=== PATIENT | female | born 1950 | race African-American/Black ===

== ENCOUNTER 2019-05-08 06:18 | Day surgery (SDC) | payer MEDICARE, MEDICAID ==
[~2019-05-08 06:18] MED LIST: AMLO5TAB88; ASPI-864; LISI40TA4; MECL-109; METF-414; OMEP20CA4; TRAM50TA
[2019-05-08] MEDS ORDERED: BRIM5DRO EACHEYE (08:36)
[2019-05-08] MEDS ORDERED: ALBU90AE INH (08:36)
[2019-05-08] MEDS ORDERED: GABA-290 MT (08:38)
[2019-05-08] MEDS ORDERED: FLUT16SP15 BOTHNSTRLS (08:38)
[2019-05-08] MEDS ORDERED: NITR0.4T SL (08:38)
[2019-05-08] MEDS ORDERED: FENTANYL CITRATE/PF 50MCG/ML 2ML VIAL ONE (08:44)
[2019-05-08] MEDS ORDERED: MIDAZOLAM HCL 2 MG/2 ML VIAL ONE (08:44)
[2019-05-08] MEDS ORDERED: LIDOCAINE HCL 1% 20ML VIAL (Pyxis) INJ ONE (08:44)
[2019-05-08] MEDS ORDERED: IODIXANOL 320MG/ML 100 ML BOTTLE IV ONE (08:44)
[2019-05-08] MEDS ORDERED: ACETAMINOPHEN 325MG TABLET PO PRN (10:15)
[2019-05-08] MEDS ORDERED: ATROPINE SULFATE 1MG/10ML SYR IV PRN (10:15)
[2019-05-08] MEDS ORDERED: ONDANSETRON HCL 4MG/2ML INJ IV PRN (10:15)
[2019-05-08] MEDS ORDERED: NICARDIPINE 100MCG/ML 10ML VIAL (CATH LAB) IV ONE (16:32)
[2019-05-08] MEDS ORDERED: NITROGLYCERIN 50MCG/ML 10ML VIAL (CATH LAB) IV ONE (16:32)
== END 2019-05-08 15:55 | disposition home or self-care (01) ==
LOC: CCL 06:18
PROVIDERS: ATTEND Specialist
DX: I25.119 Atherosclerotic heart disease of native coronary artery with unspecified angina pectoris (principal); I10 Essential (primary) hypertension; E78.5 Hyperlipidemia, unspecified; E11.42 Type 2 diabetes mellitus with diabetic polyneuropathy; E66.9 Obesity, unspecified; Z86.73 Personal history of transient ischemic attack (TIA), and cerebral infarction without residual deficits; Z79.899 Other long term (current) drug therapy
CPT/HCPCS: 82962; 93458; 99152; C1760; C1769; C1887; C1893; J1644; J2250; J3010; J3490; Q9967; G0500

== ENCOUNTER 2019-05-28 05:09 | Inpatient (IN) | payer MEDICARE, MEDICAID ==
[~2019-05-28] VITALS: Ht 160 cm; Wt 113.4 kg
[~2019-05-28 05:09] MED LIST changes: +ALBU90AE INH; -AMLO5TAB88; -ASPI-864; +BRIM5DRO EACHEYE; +FLUT16SP15 BOTHNSTRLS; +GABA-290 MT; -MECL-109; +NITR0.4T SL; -OMEP20CA4; -TRAM50TA
[2019-05-28] MEDS ORDERED: OXYCODONE HCL/ACETAMINOPHEN 5/325MG TABLET PO ONE (06:30)
[2019-05-28] MEDS ORDERED: KETOROLAC 60MG/2ML VIAL IM ONE (06:30)
[2019-05-28 09:42] LABS: BASOPHILS % 0.6 % (0.0-2.0); EOSINOPHILS % 0.6 % (0.0-5.0); HEMATOCRIT. 42.4 % (36.0-48.0); HEMOGLOBIN. 13.7 g/dL (12.0-16.0); LYMPHOCYTES % 26.2 % (20.0-50.0); MEAN CORPUSCULAR HEMOGLOBIN 28.3 pg (28.0-32.0); MEAN CORPUSCULAR VOLUME 87.4 fL (81.0-99.0); MEAN PLATELET VOLUME 9.7 fl (7.4-10.4); MONOCYTES % 6.1 % (2.0-8.0); NEUTROPHILS % 66.5 % (40.0-76.0); PLATELET 164 x1000/uL (130-400); RED BLOOD CELL COUNT 4.86 mill/uL (4.2-5.4); RED CELL DISTRIBUTION WIDTH 15.1 % (11.6-14.6)
[2019-05-28 09:49] LABS: CHLORIDE 107 mEq/L (98-107)
[2019-05-28 13:18] VITALS: BP 149/54
[2019-05-28 14:00] VITALS: BP 149/54
[2019-05-28] MEDS ORDERED: DEXTROSE 50% WATER 50ML SYRINGE IV PRN (14:00)
[2019-05-28] MEDS ORDERED: ACETAMINOPHEN 325MG TABLET PO PRN (14:00)
[2019-05-28] MEDS ORDERED: IPRATROPIUM/ALBUTEROL 0.5-3(2.5)MG/3ML NEB HHN PRN (14:00)
[2019-05-28] MEDS ORDERED: ONDANSETRON HCL 4MG/2ML INJ IV PRN (14:00)
[2019-05-28] MEDS ORDERED: CLONIDINE 0.1MG TABLET PO PRN (14:00)
[2019-05-28] MEDS ORDERED: DOCUSATE SODIUM 100MG CAPSULE PO PRN (14:00)
[2019-05-28] MEDS ORDERED: HYDROCODONE/ACETAMINOPHEN 5/325MG TABLET PO PRN (14:00)
[2019-05-28 16:00] VITALS: BP 132/79
[2019-05-28] MEDS: ENOXAPARIN 30MG/0.3ML SYR SUBCUT SCH (17:40)
[2019-05-28] MEDS: LISINOPRIL 40MG TABLET PO SCH (17:41)
[2019-05-28] MEDS: METFORMIN HCL 500MG TABLET PO SCH (17:41)
[2019-05-28] MEDS: AMLODIPINE 10MG TABLET PO SCH (17:41)
[2019-05-28] MEDS: GABAPENTIN 300MG CAPSULE PO SCH ×2 (17:50→21:07)
[2019-05-28] MEDS: BLOOD SUGAR DIAGNOSTIC STRIP TEST SCH ×2 (17:57→20:50)
[2019-05-28] MEDS: INSULIN LISPRO 100 UNITS/ML SUBCUT SCH ×2 (17:57→20:50)
[2019-05-28 20:00] VITALS: BP 137/69
[2019-05-28] MEDS: IPRATROPIUM/ALBUTEROL 0.5-3(2.5)MG/3ML NEB HHN SCH (20:42)
[2019-05-29] VITALS: BP 132/74
[2019-05-29] MEDS: IPRATROPIUM/ALBUTEROL 0.5-3(2.5)MG/3ML NEB HHN SCH ×4 (01:20→20:42)
[2019-05-29] MEDS: HYDROCODONE/ACETAMINOPHEN 10/325MG TABLET PO PRN ×2 (02:51→17:26)
[2019-05-29 04:00] VITALS: BP 110/56
[2019-05-29] MEDS: BLOOD SUGAR DIAGNOSTIC STRIP TEST SCH ×4 (06:20→20:31)
[2019-05-29] MEDS: GABAPENTIN 300MG CAPSULE PO SCH ×3 (06:21→20:31)
[2019-05-29] MEDS: ENOXAPARIN 30MG/0.3ML SYR SUBCUT SCH ×2 (06:22→17:26)
[2019-05-29] MEDS ORDERED: OMEPRAZOLE 20MG CAPSULE EXTENDED RELEASE PO SCH (07:40)
[2019-05-29] MEDS: INSULIN LISPRO 100 UNITS/ML SUBCUT SCH ×4 (08:10→20:37)
[2019-05-29 08:30] VITALS: BP 127/64
[2019-05-29] MEDS: METFORMIN HCL 500MG TABLET PO SCH ×2 (08:47→17:26)
[2019-05-29] MEDS: PAROXETINE HCL 10MG TABLET PO SCH (08:47)
[2019-05-29] MEDS: AMLODIPINE 10MG TABLET PO SCH (08:47)
[2019-05-29] MEDS: LISINOPRIL 40MG TABLET PO SCH (08:48)
[2019-05-29 12:15] VITALS: BP 129/68
[2019-05-29 16:07] VITALS: BP 155/64
[2019-05-29 20:00] VITALS: BP 124/50
[2019-05-30 00:05] VITALS: BP 133/65
[2019-05-30] MEDS: IPRATROPIUM/ALBUTEROL 0.5-3(2.5)MG/3ML NEB HHN SCH ×4 (01:23→16:05)
[2019-05-30 04:00] VITALS: BP 113/60
[2019-05-30] MEDS: GABAPENTIN 300MG CAPSULE PO SCH ×2 (05:50→14:50)
[2019-05-30] MEDS: ENOXAPARIN 30MG/0.3ML SYR SUBCUT SCH (05:50)
[2019-05-30] MEDS: BLOOD SUGAR DIAGNOSTIC STRIP TEST SCH ×2 (05:56→12:40)
[2019-05-30 09:34] VITALS: BP 121/70
[2019-05-30] MEDS: AMLODIPINE 10MG TABLET PO SCH (09:41)
[2019-05-30] MEDS: METFORMIN HCL 500MG TABLET PO SCH (09:41)
[2019-05-30] MEDS: PAROXETINE HCL 10MG TABLET PO SCH (09:41)
[2019-05-30] MEDS: LISINOPRIL 40MG TABLET PO SCH (09:41)
[2019-05-30 12:25] VITALS: BP 140/68
[2019-05-30 13:11] LABS: ANTI-NUCLEAR ANTIBODIES DIRECT Positive (Negative)
[2019-05-30] MEDS: PREDNISONE 20MG TABLET PO SCH ×2 (14:49→16:31)
[2019-05-30 14:52] VITALS: BP 140/68
[2019-05-30 15:47] VITALS: BP 138/68
[2019-05-31 15:11] LABS: ANTI-MYELOPEROXIDASE AB < 9.0 U/mL (0.0-9.0); ANTI-PROTEINASE 3 ABS < 3.5 U/mL (0.0-3.5)
[2019-06-02 15:11] LABS: ATYPICAL P-ANCA <1:20 titer (Neg:<1:20); CYTOPLASMIC C-ANCA <1:20 titer (Neg:<1:20); PERINUCLEAR P-ANCA <1:20 titer (Neg:<1:20)
== END 2019-05-30 17:48 | DRG 552 ==
LOC: ER 05:09 → 7WST 07:57 → ENRESERV 09:55
PROVIDERS: ADMIT Internal Medicine Critical Care Medicine; ATTEND Internal Medicine Critical Care Medicine
DX: M48.061 Spinal stenosis, lumbar region without neurogenic claudication (principal); S12.600A Unspecified displaced fracture of seventh cervical vertebra, initial encounter for closed fracture; I67.82 Cerebral ischemia; I69.354 Hemiplegia and hemiparesis following cerebral infarction affecting left non-dominant side; G89.4 Chronic pain syndrome; F43.10 Post-traumatic stress disorder, unspecified; E66.01 Morbid (severe) obesity due to excess calories; E11.40 Type 2 diabetes mellitus with diabetic neuropathy, unspecified; I10 Essential (primary) hypertension; B19.20 Unspecified viral hepatitis C without hepatic coma; K21.9 Gastro-esophageal reflux disease without esophagitis; K52.9 Noninfective gastroenteritis and colitis, unspecified; M19.90 Unspecified osteoarthritis, unspecified site; M48.02 Spinal stenosis, cervical region; M47.892 Other spondylosis, cervical region; R91.8 Other nonspecific abnormal finding of lung field; X58.XXXA Exposure to other specified factors, initial encounter; R29.6 Repeated falls; Z82.3 Family history of stroke; Z86.11 Personal history of tuberculosis; Z90.710 Acquired absence of both cervix and uterus; Z86.718 Personal history of other venous thrombosis and embolism; Z79.899 Other long term (current) drug therapy; Z90.49 Acquired absence of other specified parts of digestive tract; Y93.89 Activity, other specified; Y92.89 Other specified places as the place of occurrence of the external cause; Y99.8 Other external cause status
CPT/HCPCS: 36415; 71045; 72128; 72131; 82962; 83520; 84550; 86038; 86256; 86431; 93970; 94640; 97161; 97166; 99285; J1650; J1885; J7512; J7620

== ENCOUNTER 2019-05-30 17:35 | Inpatient (IN) | payer MEDICARE, MEDICAID ==
[~2019-05-30] VITALS: Ht 154.9 cm; Wt 99.4 kg
[2019-05-30 20:00] VITALS: BP 125/64
[2019-05-30] MEDS ORDERED: DOCUSATE SODIUM 100MG CAPSULE PO PRN (20:00)
[2019-05-30] MEDS ORDERED: DEXTROSE 50% WATER 50ML SYRINGE IV PRN (20:00)
[2019-05-30] MEDS ORDERED: CLONIDINE 0.1MG TABLET PO PRN (20:00)
[2019-05-30] MEDS ORDERED: HYDROCODONE/ACETAMINOPHEN 5/325MG TABLET PO PRN (20:00)
[2019-05-30] MEDS ORDERED: HYDROCODONE/ACETAMINOPHEN 10/325MG TABLET PO PRN (20:00)
[2019-05-30] MEDS ORDERED: IPRATROPIUM/ALBUTEROL 0.5-3(2.5)MG/3ML NEB HHN PRN (20:00)
[2019-05-30] MEDS ORDERED: ONDANSETRON HCL 4MG TABLET PO PRN (20:00)
[2019-05-30] MEDS: INSULIN LISPRO 100 UNITS/ML SUBCUT SCH (21:00)
[2019-05-30] MEDS: BLOOD SUGAR DIAGNOSTIC STRIP TEST SCH (21:46)
[2019-05-30] MEDS: GABAPENTIN 300MG CAPSULE PO SCH (21:46)
[2019-05-30] MEDS: ENOXAPARIN 30MG/0.3ML SYR SUBCUT SCH (21:47)
[2019-05-31] MEDS: IPRATROPIUM/ALBUTEROL 0.5-3(2.5)MG/3ML NEB HHN SCH ×4 (00:23→20:10)
[2019-05-31] MEDS: BLOOD SUGAR DIAGNOSTIC STRIP TEST SCH ×4 (06:22→21:34)
[2019-05-31] MEDS: GABAPENTIN 300MG CAPSULE PO SCH ×3 (06:22→21:12)
[2019-05-31] MEDS: INSULIN LISPRO 100 UNITS/ML SUBCUT SCH ×4 (06:47→21:30)
[2019-05-31] MEDS ORDERED: OMEPRAZOLE 20MG CAPSULE EXTENDED RELEASE PO SCH (07:00)
[2019-05-31 07:58] LABS: BASOPHILS % 0.2 % (0.0-2.0); HEMATOCRIT. 39.4 % (36.0-48.0); HEMOGLOBIN. 12.8 g/dL (12.0-16.0); LYMPHOCYTES % 8.9 % (20.0-50.0); MEAN CORPUSCULAR VOLUME 86.5 fL (81.0-99.0); MEAN PLATELET VOLUME 11.1 fl (7.4-10.4); MONOCYTES % 1.5 % (2.0-8.0); NEUTROPHILS % 89.4 % (40.0-76.0); PLATELET 183 x1000/uL (130-400); RED BLOOD CELL COUNT 4.55 mill/uL (4.2-5.4)
[2019-05-31 08:00] VITALS: BP 140/86
[2019-05-31 08:29] LABS: CHLORIDE 109 mEq/L (98-107)
[2019-05-31] MEDS ORDERED: PANTOPRAZOLE 40MG DR TABLET PO SCH (10:00)
[2019-05-31] MEDS: PAROXETINE HCL 10MG TABLET PO SCH (10:38)
[2019-05-31] MEDS: PREDNISONE 20MG TABLET PO SCH ×3 (10:38→17:22)
[2019-05-31] MEDS: METFORMIN HCL 500MG TABLET PO SCH ×2 (10:38→17:22)
[2019-05-31] MEDS: LISINOPRIL 40MG TABLET PO SCH (10:39)
[2019-05-31] MEDS: AMLODIPINE 10MG TABLET PO SCH (10:39)
[2019-05-31] MEDS: ENOXAPARIN 30MG/0.3ML SYR SUBCUT SCH ×2 (10:39→21:13)
[2019-05-31 20:00] VITALS: BP 122/55
[2019-06-01] MEDS: IPRATROPIUM/ALBUTEROL 0.5-3(2.5)MG/3ML NEB HHN SCH ×4 (02:22→21:16)
[2019-06-01] MEDS: GABAPENTIN 300MG CAPSULE PO SCH ×3 (06:49→21:19)
[2019-06-01] MEDS: PANTOPRAZOLE 40MG DR TABLET PO SCH (06:49)
[2019-06-01 08:00] VITALS: BP 119/64
[2019-06-01] MEDS: AMLODIPINE 10MG TABLET PO SCH (08:24)
[2019-06-01] MEDS: METFORMIN HCL 500MG TABLET PO SCH ×2 (08:25→17:30)
[2019-06-01] MEDS: PREDNISONE 20MG TABLET PO SCH ×3 (08:25→17:30)
[2019-06-01] MEDS: PAROXETINE HCL 10MG TABLET PO SCH (08:25)
[2019-06-01] MEDS: ENOXAPARIN 30MG/0.3ML SYR SUBCUT SCH ×2 (08:26→21:19)
[2019-06-01] MEDS: INSULIN LISPRO 100 UNITS/ML SUBCUT SCH ×4 (08:33→21:00)
[2019-06-01] MEDS: LISINOPRIL 40MG TABLET PO SCH (09:00)
[2019-06-01] MEDS: BLOOD SUGAR DIAGNOSTIC STRIP TEST SCH ×3 (11:51→21:18)
[2019-06-01] MEDS: ACETAMINOPHEN 325MG TABLET PO PRN ×2 (11:52→21:20)
[2019-06-01 14:48] LABS: CLARITY URINE CLOUDY (CLEAR); COLOR URINE YELLOW (YELLOW); KETONES URINE NEGATIVE (NEGATIVE); LEUKOCYTE ESTERASE URINE 2+ (NEGATIVE); NITRITE URINE NEGATIVE (NEGATIVE); OCCULT BLOOD URINE NEGATIVE (NEGATIVE); PH URINE >=9.0 (4.5-8.0); PROTEIN URINE 2+ (NEGATIVE); SPECIFIC GRAVITY URINE 1.021 (1.005-1.030); UROBILINOGEN URINE 0.2 E.U./dL (0.2-1.0)
[2019-06-01 20:00] VITALS: BP 135/63
[2019-06-02] MEDS: IPRATROPIUM/ALBUTEROL 0.5-3(2.5)MG/3ML NEB HHN SCH ×4 (03:16→20:09)
[2019-06-02] MEDS: GABAPENTIN 300MG CAPSULE PO SCH ×3 (06:11→21:15)
[2019-06-02] MEDS: PANTOPRAZOLE 40MG DR TABLET PO SCH (06:11)
[2019-06-02] MEDS: BLOOD SUGAR DIAGNOSTIC STRIP TEST SCH ×4 (06:11→21:15)
[2019-06-02] MEDS: INSULIN LISPRO 100 UNITS/ML SUBCUT SCH ×4 (06:12→21:00)
[2019-06-02 07:18] LABS: HEMATOCRIT. 39.5 % (36.0-48.0); HEMOGLOBIN. 12.2 g/dL (12.0-16.0); MEAN CORPUSCULAR HEMOGLOBIN 27.1 pg (28.0-32.0); MEAN CORPUSCULAR VOLUME 87.7 fL (81.0-99.0); MEAN PLATELET VOLUME 10.1 fl (7.4-10.4); PLATELET 196 x1000/uL (130-400); RED BLOOD CELL COUNT 4.51 mill/uL (4.2-5.4); RED CELL DISTRIBUTION WIDTH 15.3 % (11.6-14.6)
[2019-06-02 07:39] LABS: CHLORIDE 107 mEq/L (98-107)
[2019-06-02 07:42] LABS: FOLIC ACID (FOLATE) SERUM 10.5 ng/mL (>5.38)
[2019-06-02 07:51] LABS: PHOSPHORUS 3.2 mg/dL (2.5-4.9)
[2019-06-02 07:52] LABS: TOTAL IRON BINDING CAPACITY 324 ug/dL (250-450)
[2019-06-02 08:00] VITALS: BP 148/77
[2019-06-02] MEDS: PREDNISONE 20MG TABLET PO SCH (09:11)
[2019-06-02] MEDS: METFORMIN HCL 500MG TABLET PO SCH ×2 (09:12→16:21)
[2019-06-02] MEDS: AMLODIPINE 10MG TABLET PO SCH (09:12)
[2019-06-02] MEDS: ENOXAPARIN 30MG/0.3ML SYR SUBCUT SCH ×2 (09:12→21:14)
[2019-06-02] MEDS: PAROXETINE HCL 10MG TABLET PO SCH (09:12)
[2019-06-02] MEDS: LISINOPRIL 40MG TABLET PO SCH (09:12)
[2019-06-02] MEDS: ACETAMINOPHEN 325MG TABLET PO PRN (10:14)
[2019-06-02] MEDS: LIDOCAINE 5% PATCH TOP SCH (12:01)
[2019-06-02 12:16] LABS: T4 FREE 0.85 ng/dL (0.76-1.46)
[2019-06-02] MEDS: LEVOFLOXACIN 500MG TABLET PO SCH (13:06)
[2019-06-02 13:50] LABS: PLATELET ESTIMATE NORMAL
[2019-06-02] MEDS: MESALAMINE 400 MG CAPSULE.DR PO SCH (16:21)
[2019-06-02 20:00] VITALS: BP 137/67
[2019-06-03] MEDS: IPRATROPIUM/ALBUTEROL 0.5-3(2.5)MG/3ML NEB HHN SCH ×4 (02:13→20:03)
[2019-06-03] MEDS: GABAPENTIN 300MG CAPSULE PO SCH ×3 (06:05→22:09)
[2019-06-03] MEDS: BLOOD SUGAR DIAGNOSTIC STRIP TEST SCH ×4 (06:06→21:00)
[2019-06-03] MEDS: PANTOPRAZOLE 40MG DR TABLET PO SCH (06:06)
[2019-06-03] MEDS: INSULIN LISPRO 100 UNITS/ML SUBCUT SCH ×4 (06:52→21:00)
[2019-06-03 07:11] LABS: BASOPHILS % 0.3 % (0.0-2.0); EOSINOPHILS % 0.1 % (0.0-5.0); HEMATOCRIT. 38.5 % (36.0-48.0); HEMOGLOBIN. 12.4 g/dL (12.0-16.0); MEAN CORPUSCULAR HEMOGLOBIN 28.1 pg (28.0-32.0); MEAN CORPUSCULAR VOLUME 87.1 fL (81.0-99.0); MEAN PLATELET VOLUME 9.9 fl (7.4-10.4); MONOCYTES % 7.3 % (2.0-8.0); NEUTROPHILS % 76.3 % (40.0-76.0); PLATELET 179 x1000/uL (130-400); RED BLOOD CELL COUNT 4.42 mill/uL (4.2-5.4); RED CELL DISTRIBUTION WIDTH 15.3 % (11.6-14.6)
[2019-06-03 07:47] LABS: HEPATITIS B SURFACE ANTIGEN NEGATIVE
[2019-06-03 08:00] VITALS: BP 121/52
[2019-06-03 08:17] LABS: HEPATITIS A AB IGM NEGATIVE (NEGATIVE)
[2019-06-03] MEDS: LIDOCAINE 5% PATCH TOP SCH (09:06)
[2019-06-03] MEDS: ENOXAPARIN 30MG/0.3ML SYR SUBCUT SCH ×2 (09:06→22:10)
[2019-06-03] MEDS: MESALAMINE 400 MG CAPSULE.DR PO SCH ×2 (09:09→13:01)
[2019-06-03] MEDS: ACETAMINOPHEN 325MG TABLET PO PRN ×2 (09:09→13:01)
[2019-06-03] MEDS: METFORMIN HCL 500MG TABLET PO SCH ×2 (09:09→17:00)
[2019-06-03] MEDS: PAROXETINE HCL 10MG TABLET PO SCH (09:09)
[2019-06-03] MEDS: AMLODIPINE 10MG TABLET PO SCH (09:10)
[2019-06-03] MEDS: LISINOPRIL 40MG TABLET PO SCH (09:10)
[2019-06-03] MEDS: LEVOFLOXACIN 500MG TABLET PO SCH (13:01)
[2019-06-03] MEDS ORDERED: LOPERAMIDE HCL 2MG CAPSULE PO PRN (14:00)
[2019-06-03] MEDS: DOCUSATE SODIUM 100MG CAPSULE PO SCH (17:00)
[2019-06-03 20:00] VITALS: BP 124/61
[2019-06-03] MEDS: SULFAMETHOXAZOLE/TRIMETHOPRIM 800/160MG TABLET PO SCH (22:09)
[2019-06-04] MEDS: IPRATROPIUM/ALBUTEROL 0.5-3(2.5)MG/3ML NEB HHN SCH ×4 (01:59→20:59)
[2019-06-04] MEDS: BLOOD SUGAR DIAGNOSTIC STRIP TEST SCH ×4 (06:14→21:12)
[2019-06-04] MEDS: GABAPENTIN 300MG CAPSULE PO SCH ×3 (06:14→21:12)
[2019-06-04] MEDS: PANTOPRAZOLE 40MG DR TABLET PO SCH (06:14)
[2019-06-04] MEDS: INSULIN LISPRO 100 UNITS/ML SUBCUT SCH ×4 (06:15→21:00)
[2019-06-04 08:21] VITALS: BP 105/59
[2019-06-04] MEDS: AMLODIPINE 10MG TABLET PO SCH (09:00)
[2019-06-04] MEDS: LISINOPRIL 40MG TABLET PO SCH (09:00)
[2019-06-04] MEDS: DOCUSATE SODIUM 100MG CAPSULE PO SCH (10:36)
[2019-06-04] MEDS: PAROXETINE HCL 10MG TABLET PO SCH (10:36)
[2019-06-04] MEDS: ENOXAPARIN 30MG/0.3ML SYR SUBCUT SCH ×2 (10:37→21:12)
[2019-06-04] MEDS: METFORMIN HCL 500MG TABLET PO SCH ×2 (10:37→17:18)
[2019-06-04] MEDS: SULFAMETHOXAZOLE/TRIMETHOPRIM 800/160MG TABLET PO SCH ×2 (10:37→21:12)
[2019-06-04] MEDS: LIDOCAINE 5% PATCH TOP SCH (10:37)
[2019-06-04 20:00] VITALS: BP 139/63
[2019-06-05] MEDS: IPRATROPIUM/ALBUTEROL 0.5-3(2.5)MG/3ML NEB HHN SCH ×3 (02:07→21:05)
[2019-06-05] MEDS: PANTOPRAZOLE 40MG DR TABLET PO SCH (06:29)
[2019-06-05] MEDS: GABAPENTIN 300MG CAPSULE PO SCH ×3 (06:29→21:05)
[2019-06-05] MEDS: BLOOD SUGAR DIAGNOSTIC STRIP TEST SCH ×4 (06:29→20:18)
[2019-06-05 08:00] VITALS: BP 120/61
[2019-06-05] MEDS: PAROXETINE HCL 10MG TABLET PO SCH (09:00)
[2019-06-05] MEDS: INSULIN LISPRO 100 UNITS/ML SUBCUT SCH ×4 (09:00→20:17)
[2019-06-05] MEDS: ENOXAPARIN 30MG/0.3ML SYR SUBCUT SCH ×2 (09:06→20:17)
[2019-06-05] MEDS: METFORMIN HCL 500MG TABLET PO SCH ×2 (09:06→16:10)
[2019-06-05] MEDS: AMLODIPINE 10MG TABLET PO SCH (09:07)
[2019-06-05] MEDS: SULFAMETHOXAZOLE/TRIMETHOPRIM 800/160MG TABLET PO SCH ×2 (09:08→20:16)
[2019-06-05] MEDS: DOCUSATE SODIUM 100MG CAPSULE PO SCH (09:08)
[2019-06-05] MEDS: LISINOPRIL 40MG TABLET PO SCH (09:09)
[2019-06-05] MEDS: LIDOCAINE 5% PATCH TOP SCH (09:11)
[2019-06-05 10:06] LABS: SACCHAROMYCES CEREVISIAE IGG 98.4 Units (0.0-24.9); SACCHAROMYCES CEREVISIAE IGM <20.0 Units (0.0-24.9)
[2019-06-05 13:10] LABS: ATYPICAL pANCA <1:20 titer (Neg:<1:20)
[2019-06-05] MEDS ORDERED: DOCUSATE SODIUM 100MG CAPSULE PO PRN (17:00)
[2019-06-05 19:13] LABS: 25-HYDROXY VITAMIN D3 9.4 ng/mL (.)
[2019-06-05 20:00] VITALS: BP 111/59
[2019-06-06] MEDS: IPRATROPIUM/ALBUTEROL 0.5-3(2.5)MG/3ML NEB HHN SCH ×4 (01:47→20:01)
[2019-06-06] MEDS: INSULIN LISPRO 100 UNITS/ML SUBCUT SCH ×4 (06:17→20:46)
[2019-06-06] MEDS: GABAPENTIN 300MG CAPSULE PO SCH ×3 (06:17→21:42)
[2019-06-06] MEDS: BLOOD SUGAR DIAGNOSTIC STRIP TEST SCH ×4 (06:17→20:43)
[2019-06-06 08:00] VITALS: BP 122/44
[2019-06-06] MEDS: METFORMIN HCL 500MG TABLET PO SCH ×2 (08:18→17:59)
[2019-06-06] MEDS: FAMOTIDINE 20MG TABLET PO SCH ×2 (08:18→17:59)
[2019-06-06] MEDS: ACETAMINOPHEN 325MG TABLET PO PRN ×2 (08:18→22:56)
[2019-06-06] MEDS: SULFAMETHOXAZOLE/TRIMETHOPRIM 800/160MG TABLET PO SCH ×2 (08:19→20:41)
[2019-06-06] MEDS: ENOXAPARIN 30MG/0.3ML SYR SUBCUT SCH ×2 (08:19→20:41)
[2019-06-06] MEDS: LIDOCAINE 5% PATCH TOP SCH (08:20)
[2019-06-06] MEDS: LISINOPRIL 40MG TABLET PO SCH (09:00)
[2019-06-06] MEDS: AMLODIPINE 10MG TABLET PO SCH (09:37)
[2019-06-06] MEDS ORDERED: ERGOCALCIFEROL 50000UNITS CAPSULE PO SCH (17:00)
[2019-06-06 20:00] VITALS: BP 93/72
[2019-06-07] MEDS: IPRATROPIUM/ALBUTEROL 0.5-3(2.5)MG/3ML NEB HHN SCH ×3 (02:20→12:18)
[2019-06-07] MEDS: BLOOD SUGAR DIAGNOSTIC STRIP TEST SCH ×2 (05:40→11:49)
[2019-06-07] MEDS: ACETAMINOPHEN 325MG TABLET PO PRN (05:40)
[2019-06-07] MEDS: GABAPENTIN 300MG CAPSULE PO SCH (05:40)
[2019-06-07 08:21] VITALS: BP 90/40
[2019-06-07] MEDS: METFORMIN HCL 500MG TABLET PO SCH (08:36)
[2019-06-07] MEDS: FAMOTIDINE 20MG TABLET PO SCH (08:36)
[2019-06-07] MEDS: SULFAMETHOXAZOLE/TRIMETHOPRIM 800/160MG TABLET PO SCH (08:36)
[2019-06-07] MEDS: ENOXAPARIN 30MG/0.3ML SYR SUBCUT SCH (08:37)
[2019-06-07] MEDS: AMLODIPINE 10MG TABLET PO SCH (08:37)
[2019-06-07] MEDS: LISINOPRIL 40MG TABLET PO SCH (08:38)
[2019-06-07] MEDS: LIDOCAINE 5% PATCH TOP SCH (08:39)
[2019-06-07] MEDS: INSULIN LISPRO 100 UNITS/ML SUBCUT SCH ×2 (09:00→12:38)
[2019-06-07 11:58] VITALS: BP 116/51
== END 2019-06-07 14:00 | disposition home health service (06) | DRG 57 ==
PROVIDERS: ADMIT Physical Medicine & Rehabilitation Spinal Cord Injury Medicine; ATTEND Internal Medicine Critical Care Medicine
DX: I69.354 Hemiplegia and hemiparesis following cerebral infarction affecting left non-dominant side (principal); E46 Unspecified protein-calorie malnutrition; N39.0 Urinary tract infection, site not specified; Z68.41 Body mass index [BMI] 40.0-44.9, adult; E11.65 Type 2 diabetes mellitus with hyperglycemia; K21.9 Gastro-esophageal reflux disease without esophagitis; B19.20 Unspecified viral hepatitis C without hepatic coma; G89.4 Chronic pain syndrome; M79.605 Pain in left leg; R76.8 Other specified abnormal immunological findings in serum; F43.10 Post-traumatic stress disorder, unspecified; M48.02 Spinal stenosis, cervical region; M48.061 Spinal stenosis, lumbar region without neurogenic claudication; I10 Essential (primary) hypertension; J44.9 Chronic obstructive pulmonary disease, unspecified; M19.90 Unspecified osteoarthritis, unspecified site; E11.40 Type 2 diabetes mellitus with diabetic neuropathy, unspecified; M54.5 Low back pain; R53.81 Other malaise; I77.6 Arteritis, unspecified; M54.30 Sciatica, unspecified side; E66.01 Morbid (severe) obesity due to excess calories; K58.0 Irritable bowel syndrome with diarrhea; D72.829 Elevated white blood cell count, unspecified; R74.0 Nonspecific elevation of levels of transaminase and lactic acid dehydrogenase [LDH]; F06.31 Mood disorder due to known physiological condition with depressive features; B96.4 Proteus (mirabilis) (morganii) as the cause of diseases classified elsewhere; E55.9 Vitamin D deficiency, unspecified; Z91.81 History of falling; Z86.718 Personal history of other venous thrombosis and embolism; Z79.84 Long term (current) use of oral hypoglycemic drugs; Z90.49 Acquired absence of other specified parts of digestive tract; Z90.710 Acquired absence of both cervix and uterus; Z86.11 Personal history of tuberculosis; Z82.3 Family history of stroke; Z80.9 Family history of malignant neoplasm, unspecified
CPT/HCPCS: 36415; 80048; 81003; 82306; 82607; 82728; 82746; 82962; 83540; 83550; 83735; 84100; 84134; 84439; 84443; 84481; 86256; 86671; 86705; 86709; 86803; 87077; 87186; 87340; 92523; 92610; 93970; 94640; 97110; 97112; 97116; 97162; 97166; 97530; 97535; 97760; G0515; J1650; J1815; J7512; J7620

== ENCOUNTER 2020-03-19 12:17 | Inpatient (IN) | payer MEDICARE, MEDICAID ==
[~2020-03-19] VITALS: Ht 154.9 cm; Wt 98.0 kg
[2020-03-19] VITALS: BP 134/63
[2020-03-19] MEDS ORDERED: SODIUM CHLORIDE 0.9% 1,000 ML IV ONE (15:57)
[2020-03-19] MEDS ORDERED: KETOROLAC 30MG/ML VIAL IV STA (15:57)
[2020-03-19 16:26] LABS: BASOPHILS % 0.3 % (0.0-2.0); EOSINOPHILS % 1.5 % (0.0-5.0); HEMATOCRIT. 37.8 % (36.0-48.0); HEMOGLOBIN. 12.3 g/dL (12.0-16.0); LYMPHOCYTES % 24.6 % (20.0-50.0); MEAN CORPUSCULAR HEMOGLOBIN 27.7 pg (28.0-32.0); MEAN CORPUSCULAR VOLUME 85.2 fL (81.0-99.0); MEAN PLATELET VOLUME 9.7 fl (7.4-10.4); MONOCYTES % 4.8 % (2.0-8.0); NEUTROPHILS % 68.8 % (40.0-76.0); PLATELET 154 x1000/uL (130-400); RED BLOOD CELL COUNT 4.44 mill/uL (4.2-5.4); RED CELL DISTRIBUTION WIDTH 14.5 % (11.6-14.6)
[2020-03-19 16:32] LABS: CHLORIDE 109 mEq/L (98-107)
[2020-03-19 16:34] LABS: CLARITY URINE CLOUDY (CLEAR); COLOR URINE YELLOW (YELLOW); KETONES URINE NEGATIVE (NEGATIVE); LEUKOCYTE ESTERASE URINE 2+ (NEGATIVE); NITRITE URINE POSITIVE (NEGATIVE); OCCULT BLOOD URINE TRACE (NEGATIVE); PH URINE >=9.0 (4.5-8.0); PROTEIN URINE NEGATIVE (NEGATIVE); SPECIFIC GRAVITY URINE 1.014 (1.005-1.030); UROBILINOGEN URINE 0.2 E.U./dL (0.2-1.0)
[2020-03-19 16:35] LABS: INR 1.1; PROTHROMBIN TIME 11.3 sec (9.6-11.0)
[2020-03-19] MEDS ORDERED: CEFTRIAXONE 1 G PREMIX 50 ML IV ONE (16:45)
[2020-03-19 21:40] VITALS: BP 195/94
[2020-03-19] MEDS: CLONIDINE 0.1MG TABLET PO PRN (21:59)
[2020-03-19] MEDS ORDERED: GUAIFENESIN 200MG/10ML SUGAR FREE UDC PO PRN (22:00)
[2020-03-19] MEDS ORDERED: ACETAMINOPHEN 325MG TABLET PO PRN (22:00)
[2020-03-19] MEDS ORDERED: DOCUSATE SODIUM 100MG CAPSULE PO PRN (22:00)
[2020-03-19] MEDS ORDERED: ONDANSETRON HCL 4MG/2ML INJ IV PRN (22:00)
[2020-03-19] MEDS ORDERED: MAGNESIUM/ALUMINUM HYDROXIDE/SIMETHICONE 30ML UDC PO PRN (22:00)
[2020-03-19] MEDS: HYDROCODONE/ACETAMINOPHEN 5/325MG TABLET PO PRN (22:02)
[2020-03-19] MEDS ORDERED: DEXTROSE 50% WATER 50ML SYRINGE IV PRN (22:15)
[2020-03-20] VITALS (7 sets, daily range): BP systolic 115–134; BP diastolic 57–84
[2020-03-20] MEDS: LEVOFLOXACIN 500MG PREMIX 100 ML IV SCH (01:41)
[2020-03-20] MEDS: HYDROCODONE/ACETAMINOPHEN 5/325MG TABLET PO PRN ×2 (03:11→12:50)
[2020-03-20] MEDS ORDERED: TRAV2.5D EACHEYE ×2 (04:14→07:31)
[2020-03-20 06:25] LABS: CHLORIDE 110 mEq/L (98-107)
[2020-03-20 06:31] LABS: BASOPHILS % 0.4 % (0.0-2.0); EOSINOPHILS % 2.7 % (0.0-5.0); HEMATOCRIT. 37.4 % (36.0-48.0); HEMOGLOBIN. 11.9 g/dL (12.0-16.0); LYMPHOCYTES % 22.4 % (20.0-50.0); MEAN CORPUSCULAR HEMOGLOBIN 27.4 pg (28.0-32.0); MEAN CORPUSCULAR VOLUME 86.3 fL (81.0-99.0); MEAN PLATELET VOLUME 9.9 fl (7.4-10.4); NEUTROPHILS % 66.5 % (40.0-76.0); PLATELET 156 x1000/uL (130-400); RED BLOOD CELL COUNT 4.33 mill/uL (4.2-5.4); RED CELL DISTRIBUTION WIDTH 14.6 % (11.6-14.6)
[2020-03-20 06:33] LABS: LDL CHOLESTEROL 63 mg/dL (5-100)
[2020-03-20 06:35] LABS: HDL CHOLESTEROL 66 mg/dL (40-59); T4 FREE 0.94 ng/dL (0.76-1.46)
[2020-03-20] MEDS ORDERED: GABA-531 (07:17)
[2020-03-20] MEDS: BLOOD SUGAR DIAGNOSTIC STRIP TEST SCH ×4 (07:35→20:59)
[2020-03-20] MEDS: INSULIN LISPRO 100 UNITS/ML SUBCUT SCH ×4 (07:36→20:59)
[2020-03-20] MEDS ORDERED: MEDICATION NOT ON FORMULARY EA (Brimonidine Tartrate (Alphagan P) 1 DROP) EACHEYE SCH (09:00)
[2020-03-20] MEDS ORDERED: MEDICATION NOT ON FORMULARY EA (Gabapentin 1 TAB) MT SCH (09:00)
[2020-03-20] MEDS: GABAPENTIN 300MG CAPSULE PO SCH ×3 (09:25→18:20)
[2020-03-20] MEDS: ENOXAPARIN 30MG/0.3ML SYR SUBCUT SCH ×2 (09:26→20:59)
[2020-03-20] MEDS ORDERED: METFORMIN HCL 500MG TABLET PO SCH (09:30)
[2020-03-20] MEDS ORDERED: KETOROLAC 15MG/ML VIAL IV PRN (09:30)
[2020-03-20] MEDS: LISINOPRIL 40MG TABLET PO SCH (11:47)
[2020-03-20] MEDS: BRIMONIDINE 0.2% OPHTH DROPS 5ML BOTHEYE SCH ×2 (11:47→18:20)
[2020-03-20] MEDS: METFORMIN HCL 500MG TABLET PO SCH ×2 (12:49→18:20)
[2020-03-20] MEDS: FLUTICASONE PROPIONATE 50MCG/SPRAY BOTTLE BOTHNSTRLS SCH (12:50)
[2020-03-21] VITALS: BP 126/62
[2020-03-21] MEDS: HYDROCODONE/ACETAMINOPHEN 5/325MG TABLET PO PRN ×3 (00:22→20:50)
[2020-03-21] MEDS: LEVOFLOXACIN 500MG PREMIX 100 ML IV SCH (00:35)
[2020-03-21 04:00] VITALS: BP 132/63
[2020-03-21] MEDS: BLOOD SUGAR DIAGNOSTIC STRIP TEST SCH ×4 (06:31→21:00)
[2020-03-21] MEDS: INSULIN LISPRO 100 UNITS/ML SUBCUT SCH ×3 (07:50→21:00)
[2020-03-21 08:00] VITALS: BP 151/77
[2020-03-21] MEDS: METFORMIN HCL 500MG TABLET PO SCH ×2 (08:48→16:50)
[2020-03-21] MEDS: GABAPENTIN 300MG CAPSULE PO SCH ×3 (08:48→16:49)
[2020-03-21] MEDS: BRIMONIDINE 0.2% OPHTH DROPS 5ML BOTHEYE SCH ×2 (08:49→16:50)
[2020-03-21] MEDS: LISINOPRIL 40MG TABLET PO SCH (08:49)
[2020-03-21] MEDS: ENOXAPARIN 30MG/0.3ML SYR SUBCUT SCH ×2 (08:49→20:49)
[2020-03-21] MEDS: FLUTICASONE PROPIONATE 50MCG/SPRAY BOTTLE BOTHNSTRLS SCH (08:55)
[2020-03-21 12:00] VITALS: BP 135/69
[2020-03-21] MEDS: LIDOCAINE 5% PATCH TOP SCH (12:56)
[2020-03-21 16:00] VITALS: BP 132/73
[2020-03-21 20:00] VITALS: BP 149/75
[2020-03-21] MEDS ORDERED: LEVOFLOXACIN 500MG TABLET PO SCH (21:00)
[2020-03-22] VITALS: BP 140/75
[2020-03-22] MEDS: HYDROCODONE/ACETAMINOPHEN 5/325MG TABLET PO PRN ×3 (02:11→21:30)
[2020-03-22 04:00] VITALS: BP 162/81
[2020-03-22] MEDS: CLONIDINE 0.1MG TABLET PO PRN (04:56)
[2020-03-22] MEDS: BLOOD SUGAR DIAGNOSTIC STRIP TEST SCH ×4 (06:46→21:30)
[2020-03-22] MEDS: INSULIN LISPRO 100 UNITS/ML SUBCUT SCH ×4 (07:50→21:00)
[2020-03-22 08:00] VITALS: BP 119/60
[2020-03-22] MEDS: GABAPENTIN 300MG CAPSULE PO SCH ×3 (08:34→16:58)
[2020-03-22] MEDS: ENOXAPARIN 30MG/0.3ML SYR SUBCUT SCH ×2 (08:34→21:30)
[2020-03-22] MEDS: METFORMIN HCL 500MG TABLET PO SCH ×2 (08:34→16:59)
[2020-03-22] MEDS: LISINOPRIL 40MG TABLET PO SCH (08:35)
[2020-03-22] MEDS: LIDOCAINE 5% PATCH TOP SCH (08:46)
[2020-03-22] MEDS: BRIMONIDINE 0.2% OPHTH DROPS 5ML BOTHEYE SCH ×2 (08:47→17:00)
[2020-03-22] MEDS: FLUTICASONE PROPIONATE 50MCG/SPRAY BOTTLE BOTHNSTRLS SCH (08:47)
[2020-03-22 12:00] VITALS: BP 112/55
[2020-03-22 16:00] VITALS: BP 121/62
[2020-03-22 20:00] VITALS: BP 112/50
[2020-03-22] MEDS: SULFAMETHOXAZOLE/TRIMETHOPRIM 800/160MG TABLET PO SCH (21:31)
[2020-03-23] VITALS (8 sets, daily range): BP systolic 116–153; BP diastolic 52–77
[2020-03-23] MEDS: HYDROCODONE/ACETAMINOPHEN 5/325MG TABLET PO PRN ×2 (03:33→08:46)
[2020-03-23] MEDS: BLOOD SUGAR DIAGNOSTIC STRIP TEST SCH ×4 (06:47→21:28)
[2020-03-23] MEDS: INSULIN LISPRO 100 UNITS/ML SUBCUT SCH ×4 (07:50→21:00)
[2020-03-23] MEDS: METFORMIN HCL 500MG TABLET PO SCH ×2 (08:44→16:56)
[2020-03-23] MEDS: FLUTICASONE PROPIONATE 50MCG/SPRAY BOTTLE BOTHNSTRLS SCH (08:44)
[2020-03-23] MEDS: GABAPENTIN 300MG CAPSULE PO SCH ×3 (08:44→16:56)
[2020-03-23] MEDS: SULFAMETHOXAZOLE/TRIMETHOPRIM 800/160MG TABLET PO SCH ×2 (08:44→20:48)
[2020-03-23] MEDS: LISINOPRIL 40MG TABLET PO SCH (08:45)
[2020-03-23] MEDS: BRIMONIDINE 0.2% OPHTH DROPS 5ML BOTHEYE SCH ×2 (08:47→16:56)
[2020-03-23] MEDS: LIDOCAINE 5% PATCH TOP SCH (08:49)
[2020-03-23] MEDS: ENOXAPARIN 30MG/0.3ML SYR SUBCUT SCH ×2 (08:50→20:48)
[2020-03-24] VITALS: BP 128/66
[2020-03-24 04:00] VITALS: BP 128/66
[2020-03-24] MEDS: BLOOD SUGAR DIAGNOSTIC STRIP TEST SCH ×2 (06:20→12:20)
[2020-03-24] MEDS: INSULIN LISPRO 100 UNITS/ML SUBCUT SCH ×2 (07:50→12:50)
[2020-03-24 08:00] VITALS: BP 145/74
[2020-03-24] MEDS: GABAPENTIN 300MG CAPSULE PO SCH ×2 (09:17→13:22)
[2020-03-24] MEDS: LISINOPRIL 40MG TABLET PO SCH (09:17)
[2020-03-24] MEDS: METFORMIN HCL 500MG TABLET PO SCH (09:17)
[2020-03-24] MEDS: ENOXAPARIN 30MG/0.3ML SYR SUBCUT SCH (09:18)
[2020-03-24] MEDS: LIDOCAINE 5% PATCH TOP SCH (09:19)
[2020-03-24] MEDS: SULFAMETHOXAZOLE/TRIMETHOPRIM 800/160MG TABLET PO SCH (09:21)
[2020-03-24] MEDS: BRIMONIDINE 0.2% OPHTH DROPS 5ML BOTHEYE SCH (09:22)
[2020-03-24] MEDS ORDERED: MECLIZINE 25MG TABLET PO PRN (10:45)
[2020-03-24 12:00] VITALS: BP 119/55
[2020-03-24] MEDS ORDERED: NEOMYCIN-POLYMYXIN B-HYDROCORTISONE 1% OTIC SOLN 10ML RIGHT EAR SCH (12:00)
[2020-03-24 15:14] VITALS: BP 138/61
== END 2020-03-24 15:37 | DRG 74 ==
LOC: ER 12:55 → EDBEDREQ 19:22 → ENRESERV 20:27 → 6EST 21:15
PROVIDERS: ADMIT Hospitalist; ATTEND Hospitalist
DX: G90.8 Other disorders of autonomic nervous system (principal); E44.0 Moderate protein-calorie malnutrition; I69.354 Hemiplegia and hemiparesis following cerebral infarction affecting left non-dominant side; N30.00 Acute cystitis without hematuria; Z68.41 Body mass index [BMI] 40.0-44.9, adult; M17.11 Unilateral primary osteoarthritis, right knee; M54.30 Sciatica, unspecified side; K58.0 Irritable bowel syndrome with diarrhea; K21.9 Gastro-esophageal reflux disease without esophagitis; B19.20 Unspecified viral hepatitis C without hepatic coma; E11.40 Type 2 diabetes mellitus with diabetic neuropathy, unspecified; F43.10 Post-traumatic stress disorder, unspecified; G89.29 Other chronic pain; I10 Essential (primary) hypertension; I77.6 Arteritis, unspecified; B96.89 Other specified bacterial agents as the cause of diseases classified elsewhere; R91.1 Solitary pulmonary nodule; J31.0 Chronic rhinitis; J44.9 Chronic obstructive pulmonary disease, unspecified; M47.812 Spondylosis without myelopathy or radiculopathy, cervical region; Z86.11 Personal history of tuberculosis; Z86.718 Personal history of other venous thrombosis and embolism; Z79.84 Long term (current) use of oral hypoglycemic drugs; Z79.899 Other long term (current) drug therapy
CPT/HCPCS: 36415; 73560; 80053; 80061; 81003; 82962; 83036; 84439; 84443; 85025; 87077; 87186; 93005; 93970; 96365; 97162; 97166; 97530; 97535; 99291; J0696; J1650; J1815; J1885; J1956; J7030

== ENCOUNTER 2020-03-24 15:40 | Inpatient (IN) | payer MEDICARE, MEDICAID ==
[~2020-03-24] VITALS: Ht 154.9 cm; Wt 103.9 kg
[2020-03-24 12:00] VITALS: BP 141/55
[~2020-03-24 15:40] MED LIST changes: -GABA-290 MT; +GABA-531; +TRAV2.5D EACHEYE
[2020-03-24 16:00] VITALS: BP 141/55
[2020-03-24] MEDS ORDERED: ONDANSETRON HCL 4MG/2ML INJ IV PRN (16:30)
[2020-03-24] MEDS ORDERED: DEXTROSE 50% WATER 50ML SYRINGE IV PRN (16:30)
[2020-03-24] MEDS ORDERED: DOCUSATE SODIUM 100MG CAPSULE PO PRN (16:30)
[2020-03-24] MEDS ORDERED: CLONIDINE 0.1MG TABLET PO PRN (16:30)
[2020-03-24] MEDS ORDERED: MAGNESIUM/ALUMINUM HYDROXIDE/SIMETHICONE 30ML UDC PO PRN (16:30)
[2020-03-24] MEDS ORDERED: GUAIFENESIN 200MG/10ML SUGAR FREE UDC PO PRN (16:30)
[2020-03-24] MEDS ORDERED: HYDROCODONE/ACETAMINOPHEN 5/325MG TABLET PO PRN (16:30)
[2020-03-24] MEDS: GABAPENTIN 300MG CAPSULE PO SCH (17:00)
[2020-03-24] MEDS: BRIMONIDINE 0.2% OPHTH DROPS 5ML BOTHEYE SCH (17:00)
[2020-03-24] MEDS: INSULIN LISPRO 100 UNITS/ML SUBCUT SCH ×2 (17:00→21:00)
[2020-03-24] MEDS: BLOOD SUGAR DIAGNOSTIC STRIP TEST SCH ×2 (17:20→21:00)
[2020-03-24] MEDS: MECLIZINE 25MG TABLET PO PRN (17:38)
[2020-03-24] MEDS: NEOMYCIN-POLYMYXIN B-HYDROCORTISONE 1% OTIC SOLN 10ML RIGHT EAR SCH (17:41)
[2020-03-24] MEDS: METFORMIN HCL 500MG TABLET PO SCH (17:55)
[2020-03-24] MEDS ORDERED: NA PHOS,M-B/NA PHOS,DI-BA ENEMA 118ML PR PRN (19:45)
[2020-03-24 20:00] VITALS: BP 138/65
[2020-03-24] MEDS ORDERED: BISACODYL 5MG TABLET PO PRN (20:00)
[2020-03-24] MEDS: SULFAMETHOXAZOLE/TRIMETHOPRIM 800/160MG TABLET PO SCH (21:01)
[2020-03-24] MEDS: ENOXAPARIN 30MG/0.3ML SYR SUBCUT SCH (21:04)
[2020-03-25] MEDS: KETOROLAC 15MG/ML VIAL IV PRN (01:08)
[2020-03-25] MEDS: NEOMYCIN-POLYMYXIN B-HYDROCORTISONE 1% OTIC SOLN 10ML RIGHT EAR SCH ×5 (05:57→17:14)
[2020-03-25] MEDS: BLOOD SUGAR DIAGNOSTIC STRIP TEST SCH ×4 (05:58→20:51)
[2020-03-25] MEDS: INSULIN LISPRO 100 UNITS/ML SUBCUT SCH ×4 (06:02→20:50)
[2020-03-25 08:00] VITALS: BP 112/60
[2020-03-25] MEDS: BRIMONIDINE 0.2% OPHTH DROPS 5ML BOTHEYE SCH ×2 (09:55→17:14)
[2020-03-25] MEDS: LIDOCAINE 5% PATCH TOP SCH (09:55)
[2020-03-25] MEDS: METFORMIN HCL 500MG TABLET PO SCH ×2 (09:56→16:49)
[2020-03-25] MEDS: ENOXAPARIN 30MG/0.3ML SYR SUBCUT SCH ×2 (09:56→20:46)
[2020-03-25] MEDS: GABAPENTIN 300MG CAPSULE PO SCH ×3 (09:56→16:49)
[2020-03-25] MEDS: SULFAMETHOXAZOLE/TRIMETHOPRIM 800/160MG TABLET PO SCH ×2 (09:56→20:46)
[2020-03-25] MEDS: DOCUSATE SODIUM 100MG CAPSULE PO SCH ×2 (09:56→16:49)
[2020-03-25] MEDS: LISINOPRIL 40MG TABLET PO SCH (09:56)
[2020-03-25 20:00] VITALS: BP_SYST 109; BP_SYST 130; BP_DIAS 51; BP_DIAS 53
[2020-03-25] MEDS: ACETAMINOPHEN 325MG TABLET PO PRN (23:01)
[2020-03-26] MEDS: NEOMYCIN-POLYMYXIN B-HYDROCORTISONE 1% OTIC SOLN 10ML RIGHT EAR SCH ×5 (06:00→23:10)
[2020-03-26] MEDS: INSULIN LISPRO 100 UNITS/ML SUBCUT SCH ×4 (06:56→21:00)
[2020-03-26] MEDS: BLOOD SUGAR DIAGNOSTIC STRIP TEST SCH ×4 (06:56→21:00)
[2020-03-26] MEDS: KETOROLAC 15MG/ML VIAL IV PRN ×2 (06:57→15:20)
[2020-03-26 08:00] VITALS: BP 102/48
[2020-03-26] MEDS: LISINOPRIL 40MG TABLET PO SCH (08:56)
[2020-03-26] MEDS: METFORMIN HCL 500MG TABLET PO SCH ×2 (08:56→16:32)
[2020-03-26] MEDS: SULFAMETHOXAZOLE/TRIMETHOPRIM 800/160MG TABLET PO SCH ×2 (08:56→22:05)
[2020-03-26] MEDS: GABAPENTIN 300MG CAPSULE PO SCH ×3 (08:56→16:32)
[2020-03-26] MEDS: BRIMONIDINE 0.2% OPHTH DROPS 5ML BOTHEYE SCH ×2 (08:56→16:31)
[2020-03-26] MEDS: DOCUSATE SODIUM 100MG CAPSULE PO SCH ×2 (08:56→16:31)
[2020-03-26] MEDS: LIDOCAINE 5% PATCH TOP SCH (08:57)
[2020-03-26] MEDS: ENOXAPARIN 30MG/0.3ML SYR SUBCUT SCH ×2 (08:57→22:05)
[2020-03-26] MEDS ORDERED: ETHYL CHLORIDE CAN TOP SCH (14:45)
[2020-03-26] MEDS ORDERED: METHYLPREDNISOLONE SOD SUCC 40 MG/ML VIAL IM SCH (14:45)
[2020-03-26] MEDS ORDERED: LIDOCAINE HCL 1% 20ML VIAL (Pyxis) INJ INFIL SCH (15:00)
[2020-03-26] MEDS ORDERED: METHYLPREDNISOLONE ACETATE 40MG/ML VIAL IM NR (15:00)
[2020-03-26 20:03] VITALS: BP 91/51
[2020-03-27] MEDS: NEOMYCIN-POLYMYXIN B-HYDROCORTISONE 1% OTIC SOLN 10ML RIGHT EAR SCH ×3 (05:25→17:08)
[2020-03-27] MEDS: BLOOD SUGAR DIAGNOSTIC STRIP TEST SCH ×4 (05:35→21:00)
[2020-03-27 08:08] VITALS: BP 116/69
[2020-03-27] MEDS: SULFAMETHOXAZOLE/TRIMETHOPRIM 800/160MG TABLET PO SCH ×2 (08:30→22:01)
[2020-03-27] MEDS: LISINOPRIL 40MG TABLET PO SCH (08:30)
[2020-03-27] MEDS: GABAPENTIN 300MG CAPSULE PO SCH ×3 (08:30→17:08)
[2020-03-27] MEDS: METFORMIN HCL 500MG TABLET PO SCH ×2 (08:30→17:08)
[2020-03-27] MEDS: DOCUSATE SODIUM 100MG CAPSULE PO SCH ×2 (08:31→17:08)
[2020-03-27] MEDS: ENOXAPARIN 30MG/0.3ML SYR SUBCUT SCH ×2 (08:33→22:01)
[2020-03-27] MEDS: LIDOCAINE 5% PATCH TOP SCH ×2 (08:36→09:00)
[2020-03-27] MEDS: BRIMONIDINE 0.2% OPHTH DROPS 5ML BOTHEYE SCH ×2 (08:41→17:07)
[2020-03-27] MEDS: INSULIN LISPRO 100 UNITS/ML SUBCUT SCH ×4 (09:00→21:00)
[2020-03-27] MEDS: MECLIZINE 25MG TABLET PO PRN (09:51)
[2020-03-27 20:00] VITALS: BP 112/64
[2020-03-28] MEDS: ACETAMINOPHEN 325MG TABLET PO PRN ×3 (04:01→19:01)
[2020-03-28] MEDS: NEOMYCIN-POLYMYXIN B-HYDROCORTISONE 1% OTIC SOLN 10ML RIGHT EAR SCH ×5 (05:31→23:43)
[2020-03-28] MEDS: BLOOD SUGAR DIAGNOSTIC STRIP TEST SCH ×4 (05:31→21:51)
[2020-03-28 08:18] VITALS: BP 128/75
[2020-03-28] MEDS: LISINOPRIL 40MG TABLET PO SCH (08:36)
[2020-03-28] MEDS: DOCUSATE SODIUM 100MG CAPSULE PO SCH ×2 (08:36→17:23)
[2020-03-28] MEDS: GABAPENTIN 300MG CAPSULE PO SCH ×3 (08:36→17:24)
[2020-03-28] MEDS: MECLIZINE 25MG TABLET PO PRN (08:36)
[2020-03-28] MEDS: METFORMIN HCL 500MG TABLET PO SCH ×2 (08:36→17:24)
[2020-03-28] MEDS: BRIMONIDINE 0.2% OPHTH DROPS 5ML BOTHEYE SCH ×2 (08:37→17:24)
[2020-03-28] MEDS: ENOXAPARIN 30MG/0.3ML SYR SUBCUT SCH ×2 (08:37→21:51)
[2020-03-28] MEDS: LIDOCAINE 5% PATCH TOP SCH (08:37)
[2020-03-28] MEDS: INSULIN LISPRO 100 UNITS/ML SUBCUT SCH ×4 (08:46→21:00)
[2020-03-28 20:00] VITALS: BP 110/51
[2020-03-29] MEDS: ACETAMINOPHEN 325MG TABLET PO PRN ×3 (02:08→22:35)
[2020-03-29] MEDS: NEOMYCIN-POLYMYXIN B-HYDROCORTISONE 1% OTIC SOLN 10ML RIGHT EAR SCH ×3 (05:01→17:34)
[2020-03-29] MEDS: BLOOD SUGAR DIAGNOSTIC STRIP TEST SCH ×4 (06:04→20:35)
[2020-03-29] MEDS: INSULIN LISPRO 100 UNITS/ML SUBCUT SCH ×4 (06:05→21:00)
[2020-03-29 08:00] VITALS: BP 130/66
[2020-03-29 08:33] VITALS: BP 130/66
[2020-03-29] MEDS: BRIMONIDINE 0.2% OPHTH DROPS 5ML BOTHEYE SCH ×2 (09:23→17:32)
[2020-03-29] MEDS: ENOXAPARIN 30MG/0.3ML SYR SUBCUT SCH ×2 (09:23→20:34)
[2020-03-29] MEDS: DOCUSATE SODIUM 100MG CAPSULE PO SCH ×2 (09:24→17:32)
[2020-03-29] MEDS: LISINOPRIL 40MG TABLET PO SCH (09:24)
[2020-03-29] MEDS: GABAPENTIN 300MG CAPSULE PO SCH ×3 (09:24→17:32)
[2020-03-29] MEDS: LIDOCAINE 5% PATCH TOP SCH (09:24)
[2020-03-29] MEDS: METFORMIN HCL 500MG TABLET PO SCH ×2 (09:24→17:32)
[2020-03-29] MEDS: MECLIZINE 25MG TABLET PO PRN ×2 (09:31→17:32)
[2020-03-29 20:00] VITALS: BP 105/54
[2020-03-30] MEDS: NEOMYCIN-POLYMYXIN B-HYDROCORTISONE 1% OTIC SOLN 10ML RIGHT EAR SCH ×5 (06:00→16:34)
[2020-03-30] MEDS: BLOOD SUGAR DIAGNOSTIC STRIP TEST SCH ×4 (06:24→21:00)
[2020-03-30] MEDS: INSULIN LISPRO 100 UNITS/ML SUBCUT SCH ×4 (06:24→22:05)
[2020-03-30 08:00] VITALS: BP 113/57
[2020-03-30] MEDS: BRIMONIDINE 0.2% OPHTH DROPS 5ML BOTHEYE SCH ×2 (08:40→16:33)
[2020-03-30] MEDS: GABAPENTIN 300MG CAPSULE PO SCH ×3 (08:40→16:32)
[2020-03-30] MEDS: ENOXAPARIN 30MG/0.3ML SYR SUBCUT SCH ×2 (08:41→22:06)
[2020-03-30] MEDS: LISINOPRIL 40MG TABLET PO SCH (08:41)
[2020-03-30] MEDS: METFORMIN HCL 500MG TABLET PO SCH ×2 (08:41→16:31)
[2020-03-30] MEDS: LIDOCAINE 5% PATCH TOP SCH (08:42)
[2020-03-30] MEDS: DOCUSATE SODIUM 100MG CAPSULE PO SCH ×2 (08:45→16:26)
[2020-03-30] MEDS: MECLIZINE 25MG TABLET PO PRN (08:48)
[2020-03-30] MEDS: ACETAMINOPHEN 325MG TABLET PO PRN (11:31)
[2020-03-30 16:07] LABS: BASOPHILS % 0.9 % (0.0-2.0); HEMATOCRIT. 39.7 % (36.0-48.0); HEMOGLOBIN. 12.9 g/dL (12.0-16.0); LYMPHOCYTES % 26.8 % (20.0-50.0); MEAN CORPUSCULAR HEMOGLOBIN 27.7 pg (28.0-32.0); MEAN CORPUSCULAR VOLUME 85.5 fL (81.0-99.0); MEAN PLATELET VOLUME 9.9 fl (7.4-10.4); MONOCYTES % 8.1 % (2.0-8.0); NEUTROPHILS % 61.2 % (40.0-76.0); PLATELET 191 x1000/uL (130-400); RED BLOOD CELL COUNT 4.65 mill/uL (4.2-5.4); RED CELL DISTRIBUTION WIDTH 14.6 % (11.6-14.6)
[2020-03-30 16:13] LABS: CHLORIDE 106 mEq/L (98-107)
[2020-03-30 19:48] VITALS: BP 103/54
[2020-03-31] MEDS: ACETAMINOPHEN 325MG TABLET PO PRN ×5 (01:56→21:07)
[2020-03-31] MEDS: NEOMYCIN-POLYMYXIN B-HYDROCORTISONE 1% OTIC SOLN 10ML RIGHT EAR SCH ×4 (05:07→17:18)
[2020-03-31 06:09] LABS: BASOPHILS % 0.8 % (0.0-2.0); EOSINOPHILS % 3.5 % (0.0-5.0); HEMATOCRIT. 39.1 % (36.0-48.0); HEMOGLOBIN. 12.7 g/dL (12.0-16.0); LYMPHOCYTES % 36.1 % (20.0-50.0); MEAN CORPUSCULAR HEMOGLOBIN 27.7 pg (28.0-32.0); MEAN CORPUSCULAR VOLUME 85.2 fL (81.0-99.0); MEAN PLATELET VOLUME 10.4 fl (7.4-10.4); MONOCYTES % 6.9 % (2.0-8.0); NEUTROPHILS % 52.7 % (40.0-76.0); PLATELET 187 x1000/uL (130-400); RED BLOOD CELL COUNT 4.59 mill/uL (4.2-5.4); RED CELL DISTRIBUTION WIDTH 14.6 % (11.6-14.6)
[2020-03-31] MEDS: BLOOD SUGAR DIAGNOSTIC STRIP TEST SCH ×4 (06:10→21:07)
[2020-03-31] MEDS: INSULIN LISPRO 100 UNITS/ML SUBCUT SCH ×4 (06:10→21:00)
[2020-03-31 08:23] VITALS: BP 106/54
[2020-03-31] MEDS: DOCUSATE SODIUM 100MG CAPSULE PO SCH ×2 (08:32→17:00)
[2020-03-31] MEDS: METFORMIN HCL 500MG TABLET PO SCH ×2 (08:32→17:18)
[2020-03-31] MEDS: GABAPENTIN 300MG CAPSULE PO SCH ×3 (08:32→17:19)
[2020-03-31] MEDS: BRIMONIDINE 0.2% OPHTH DROPS 5ML BOTHEYE SCH ×2 (08:33→17:18)
[2020-03-31] MEDS: LISINOPRIL 40MG TABLET PO SCH (08:34)
[2020-03-31] MEDS: LIDOCAINE 5% PATCH TOP SCH (08:35)
[2020-03-31] MEDS: ENOXAPARIN 30MG/0.3ML SYR SUBCUT SCH ×2 (08:37→21:07)
[2020-03-31 20:00] VITALS: BP 101/61
[2020-04-01] MEDS: BLOOD SUGAR DIAGNOSTIC STRIP TEST SCH ×4 (06:10→21:43)
[2020-04-01] MEDS: ACETAMINOPHEN 325MG TABLET PO PRN ×2 (06:39→18:17)
[2020-04-01 08:00] VITALS: BP 107/49
[2020-04-01] MEDS: BRIMONIDINE 0.2% OPHTH DROPS 5ML BOTHEYE SCH ×2 (08:16→16:49)
[2020-04-01] MEDS: DOCUSATE SODIUM 100MG CAPSULE PO SCH ×2 (08:19→16:47)
[2020-04-01] MEDS: GABAPENTIN 300MG CAPSULE PO SCH ×3 (08:19→16:48)
[2020-04-01] MEDS: METFORMIN HCL 500MG TABLET PO SCH ×2 (08:19→16:48)
[2020-04-01] MEDS: ENOXAPARIN 30MG/0.3ML SYR SUBCUT SCH ×2 (08:19→21:02)
[2020-04-01] MEDS: LISINOPRIL 40MG TABLET PO SCH (08:20)
[2020-04-01] MEDS: LIDOCAINE 5% PATCH TOP SCH (08:21)
[2020-04-01] MEDS: INSULIN LISPRO 100 UNITS/ML SUBCUT SCH ×4 (08:21→21:00)
[2020-04-01] MEDS ORDERED: LOPERAMIDE HCL 2MG CAPSULE PO NR (14:15)
[2020-04-01 20:00] VITALS: BP 98/57
[2020-04-02] MEDS: ACETAMINOPHEN 325MG TABLET PO PRN (04:33)
[2020-04-02] MEDS: BLOOD SUGAR DIAGNOSTIC STRIP TEST SCH ×4 (07:07→21:47)
[2020-04-02 08:00] VITALS: BP 96/49
[2020-04-02] MEDS: BRIMONIDINE 0.2% OPHTH DROPS 5ML BOTHEYE SCH ×2 (08:22→17:00)
[2020-04-02] MEDS: METFORMIN HCL 500MG TABLET PO SCH ×2 (08:22→17:09)
[2020-04-02] MEDS: ENOXAPARIN 30MG/0.3ML SYR SUBCUT SCH ×2 (08:22→21:34)
[2020-04-02] MEDS: GABAPENTIN 300MG CAPSULE PO SCH ×3 (08:22→17:09)
[2020-04-02] MEDS: INSULIN LISPRO 100 UNITS/ML SUBCUT SCH ×4 (08:23→21:00)
[2020-04-02] MEDS: LISINOPRIL 40MG TABLET PO SCH (08:23)
[2020-04-02] MEDS: DOCUSATE SODIUM 100MG CAPSULE PO SCH ×2 (08:23→17:00)
[2020-04-02] MEDS: LIDOCAINE 5% PATCH TOP SCH (08:24)
[2020-04-02] MEDS: MECLIZINE 25MG TABLET PO PRN (11:24)
[2020-04-02 20:00] VITALS: BP 137/68
[2020-04-03] MEDS: BLOOD SUGAR DIAGNOSTIC STRIP TEST SCH ×2 (06:25→12:05)
[2020-04-03 08:00] VITALS: BP 121/62
[2020-04-03] MEDS: LIDOCAINE 5% PATCH TOP SCH (08:41)
[2020-04-03] MEDS: GABAPENTIN 300MG CAPSULE PO SCH ×2 (08:42→12:16)
[2020-04-03] MEDS: DOCUSATE SODIUM 100MG CAPSULE PO SCH ×2 (08:42→09:00)
[2020-04-03] MEDS: LISINOPRIL 40MG TABLET PO SCH (08:42)
[2020-04-03] MEDS: METFORMIN HCL 500MG TABLET PO SCH (08:42)
[2020-04-03] MEDS: ENOXAPARIN 30MG/0.3ML SYR SUBCUT SCH (08:43)
[2020-04-03] MEDS: BRIMONIDINE 0.2% OPHTH DROPS 5ML BOTHEYE SCH (08:44)
[2020-04-03] MEDS: INSULIN LISPRO 100 UNITS/ML SUBCUT SCH ×2 (08:48→12:08)
[2020-04-03 10:43] VITALS: BP 121/62
== END 2020-04-03 12:55 | disposition home health service (06) | DRG 554 ==
PROVIDERS: ADMIT Psychiatry & Neurology Neurology; ATTEND Hospitalist
DX: M17.11 Unilateral primary osteoarthritis, right knee (principal); E44.0 Moderate protein-calorie malnutrition; I69.354 Hemiplegia and hemiparesis following cerebral infarction affecting left non-dominant side; N30.00 Acute cystitis without hematuria; Z68.41 Body mass index [BMI] 40.0-44.9, adult; B19.20 Unspecified viral hepatitis C without hepatic coma; E11.42 Type 2 diabetes mellitus with diabetic polyneuropathy; E11.649 Type 2 diabetes mellitus with hypoglycemia without coma; E66.9 Obesity, unspecified; F43.10 Post-traumatic stress disorder, unspecified; G89.4 Chronic pain syndrome; I10 Essential (primary) hypertension; K21.9 Gastro-esophageal reflux disease without esophagitis; K58.0 Irritable bowel syndrome with diarrhea; B96.4 Proteus (mirabilis) (morganii) as the cause of diseases classified elsewhere; J44.9 Chronic obstructive pulmonary disease, unspecified; Z96.651 Presence of right artificial knee joint; I77.6 Arteritis, unspecified; Z60.2 Problems related to living alone; G90.8 Other disorders of autonomic nervous system; M47.812 Spondylosis without myelopathy or radiculopathy, cervical region; J31.0 Chronic rhinitis; J84.10 Pulmonary fibrosis, unspecified; M21.372 Foot drop, left foot; W18.30XA Fall on same level, unspecified, initial encounter; Z86.11 Personal history of tuberculosis; Z86.718 Personal history of other venous thrombosis and embolism; Z90.710 Acquired absence of both cervix and uterus; Y93.89 Activity, other specified; Y92.89 Other specified places as the place of occurrence of the external cause; Y99.8 Other external cause status; Z90.49 Acquired absence of other specified parts of digestive tract; Z98.51 Tubal ligation status
CPT/HCPCS: 36415; 80048; 80053; 82962; 85025; 97110; 97116; 97162; 97166; 97530; 97535; J1030; J1650; J1885; J2405; J3490; J8597; L1830

== ENCOUNTER 2021-07-08 22:42 | Inpatient (IN) | payer MEDICARE, MEDICAID ==
[~2021-07-08] VITALS: Ht 165.1 cm; Wt 95.7 kg
[~2021-07-08 22:42] MED LIST changes: -GABA-531; +GABA-532; +LISI40TA13; -LISI40TA4; -TRAV2.5D EACHEYE; +TRAV2.5D9 EACHEYE
[2021-07-08] MEDS ORDERED: NITROGLYCERIN 0.4MG TABLET SL SL PRN (23:15)
[2021-07-08] MEDS ORDERED: ASPIRIN 81MG TABLET PO ONE (23:15)
[2021-07-09 01:10] LABS: BASOPHILS % 0.7 % (0.0-2.0); EOSINOPHILS % 2.1 % (0.0-5.0); HEMATOCRIT. 35.9 % (36.0-48.0); HEMOGLOBIN. 11.4 g/dL (12.0-16.0); LYMPHOCYTES % 20.6 % (20.0-50.0); MEAN CORPUSCULAR HEMOGLOBIN 26.5 pg (28.0-32.0); MEAN CORPUSCULAR VOLUME 83.3 fL (81.0-99.0); NEUTROPHILS % 69.6 % (40.0-76.0); PLATELET 199 x1000/uL (130-400); RED BLOOD CELL COUNT 4.31 mill/uL (4.2-5.4); RED CELL DISTRIBUTION WIDTH 15.1 % (11.6-14.6)
[2021-07-09 01:13] LABS: CHLORIDE 112 mEq/L (98-107)
[2021-07-09 01:53] LABS: D-DIMER 0.97 mg/L FEU (<0.50); PARTIAL THROMBOPLASTIN TIME 28.2 sec (23.4-31.0); PROTHROMBIN TIME 10.8 sec (9.6-11.0)
[2021-07-09] MEDS ORDERED: ONDANSETRON HCL 4MG/2ML INJ IV PRN (06:45)
[2021-07-09] MEDS ORDERED: DOCUSATE SODIUM 100MG CAPSULE PO PRN (06:45)
[2021-07-09] MEDS ORDERED: HYDROCODONE/ACETAMINOPHEN 5/325MG TABLET PO PRN (06:45)
[2021-07-09] MEDS ORDERED: CLONIDINE 0.1MG TABLET PO PRN (06:45)
[2021-07-09] MEDS ORDERED: ACETAMINOPHEN 325MG TABLET PO PRN (06:45)
[2021-07-09] MEDS ORDERED: MAGNESIUM/ALUMINUM HYDROXIDE/SIMETHICONE 30ML UDC PO PRN (06:45)
[2021-07-09] MEDS ORDERED: IPRATROPIUM/ALBUTEROL 0.5-3(2.5)MG/3ML NEB HHN PRN (06:45)
[2021-07-09] MEDS ORDERED: DEXTROSE 50% WATER 50ML SYRINGE IV PRN ×2 (06:45)
[2021-07-09] MEDS ORDERED: NALOXONE HCL 0.4MG/ML VIAL IV PRN (07:00)
[2021-07-09 08:00] VITALS: BP 118/66
[2021-07-09] MEDS ORDERED: ENOXAPARIN 40MG/0.4ML SYR SUBCUT SCH (09:00)
[2021-07-09 11:00] VITALS: BP 118/66
[2021-07-09 12:00] VITALS: BP 149/76
[2021-07-09] MEDS: BLOOD SUGAR DIAGNOSTIC STRIP TEST SCH ×3 (12:10→21:00)
[2021-07-09] MEDS ORDERED: KETOROLAC 15MG/ML VIAL IV NR (15:00)
[2021-07-09 16:00] VITALS: BP 126/67
[2021-07-09] MEDS ORDERED: PNEUMOCOCCAL 23-VAL P-SAC VAC 0.5 ML IM ONE (17:00)
[2021-07-09 18:16] LABS: CLARITY URINE CLEAR (CLEAR); COLOR URINE YELLOW (YELLOW); KETONES URINE NEGATIVE (NEGATIVE); LEUKOCYTE ESTERASE URINE NEGATIVE (NEGATIVE); NITRITE URINE NEGATIVE (NEGATIVE); OCCULT BLOOD URINE TRACE (NEGATIVE); PROTEIN URINE NEGATIVE (NEGATIVE); SPECIFIC GRAVITY URINE 1.016 (1.005-1.030); UROBILINOGEN URINE 0.2 E.U./dL (0.2-1.0)
[2021-07-09 18:26] LABS: OPIATES URINE SCREEN NEGATIVE (NEGATIVE)
[2021-07-09 18:27] LABS: *AMPHETAMINES SCREEN URINE NEGATIVE (NEGATIVE); *BENZODIAZEPINES SCREEN URINE NEGATIVE (NEGATIVE); *COCAINE SCREEN URINE NEGATIVE (NEGATIVE); CANNABINOID URINE SCREEN NEGATIVE (NEGATIVE); METHADONE URINE SCREEN NEGATIVE (NEGATIVE); PHENCYCLIDINE URINE SCREEN NEGATIVE (NEGATIVE)
[2021-07-09 18:28] LABS: *BARBITURATES SCREEN URINE NEGATIVE (NEGATIVE)
[2021-07-09 20:00] VITALS: BP 111/50
[2021-07-10] VITALS: BP 125/84
[2021-07-10 04:00] VITALS: BP 133/65
[2021-07-10] MEDS: BLOOD SUGAR DIAGNOSTIC STRIP TEST SCH ×2 (06:24→12:10)
[2021-07-10] MEDS ORDERED: OMEPRAZOLE 20MG CAPSULE EXTENDED RELEASE PO SCH (06:30)
[2021-07-10 07:29] LABS: BASOPHILS % 0.6 % (0.0-2.0); EOSINOPHILS % 3.9 % (0.0-5.0); HEMATOCRIT. 35.6 % (36.0-48.0); HEMOGLOBIN. 11.5 g/dL (12.0-16.0); LYMPHOCYTES % 30.5 % (20.0-50.0); MEAN CORPUSCULAR VOLUME 83.4 fL (81.0-99.0); MEAN PLATELET VOLUME 9.6 fl (7.4-10.4); PLATELET 172 x1000/uL (130-400); RED BLOOD CELL COUNT 4.26 mill/uL (4.2-5.4); RED CELL DISTRIBUTION WIDTH 15.6 % (11.6-14.6)
[2021-07-10 08:00] VITALS: BP 120/54
[2021-07-10 08:17] LABS: CHLORIDE 110 mEq/L (98-107)
[2021-07-10 08:27] LABS: LDL CHOLESTEROL 119 mg/dL (5-100)
[2021-07-10 08:28] LABS: HDL CHOLESTEROL 82 mg/dL (40-59); PHOSPHORUS 3.1 mg/dL (2.5-4.9)
[2021-07-10 08:29] LABS: T4 FREE 1.01 ng/dL (0.76-1.46)
[2021-07-10] MEDS ORDERED: ENOXAPARIN 30MG/0.3ML SYR SUBCUT SCH (09:00)
[2021-07-10 11:56] VITALS: BP 115/64
[2021-07-10 16:19] VITALS: BP 98/45
== END 2021-07-10 17:25 | disposition home or self-care (01) | DRG 206 ==
LOC: ER 22:42 → MICUSO 07-09 04:41 → 8WST 07-09 07:26
PROVIDERS: ADMIT Internal Medicine; ATTEND Internal Medicine
DX: M94.0 Chondrocostal junction syndrome [Tietze] (principal); I69.354 Hemiplegia and hemiparesis following cerebral infarction affecting left non-dominant side; Z20.822 Contact with and (suspected) exposure to COVID-19; E11.9 Type 2 diabetes mellitus without complications; I10 Essential (primary) hypertension; J45.909 Unspecified asthma, uncomplicated; E66.9 Obesity, unspecified; G47.30 Sleep apnea, unspecified; M48.00 Spinal stenosis, site unspecified; M19.90 Unspecified osteoarthritis, unspecified site; Z87.01 Personal history of pneumonia (recurrent); Z79.899 Other long term (current) drug therapy; Z79.51 Long term (current) use of inhaled steroids; Z79.84 Long term (current) use of oral hypoglycemic drugs; Z68.35 Body mass index [BMI] 35.0-35.9, adult
CPT/HCPCS: 36415; 71045; 78580; 80048; 80053; 80061; 80076; 80305; 81003; 82962; 83036; 83735; 83880; 84100; 84439; 84443; 84484; 85025; 85379; 87426; 90732; 93005; 93306; 93970; 99285; J1650; J1885

== ENCOUNTER → 2022-02-21 | Outpatient (CLI) | payer MEDICARE, MEDICAID | END | disposition home or self-care (01) | LOC: CT 07:47 | PROVIDERS: ATTEND Internal Medicine Critical Care Medicine | DX: G93.89 Other specified disorders of brain (principal); I67.2 Cerebral atherosclerosis; R90.82 White matter disease, unspecified; H92.01 Otalgia, right ear; R51.0 Headache with orthostatic component, not elsewhere classified | CPT/HCPCS: 70480 ==

== ENCOUNTER → 2022-07-18 | Outpatient (CLI) | payer MEDICARE, MEDICAID | END | disposition home or self-care (01) | LOC: MRI 11:02 | PROVIDERS: ATTEND Internal Medicine Critical Care Medicine | DX: S83.511A Sprain of anterior cruciate ligament of right knee, initial encounter (principal); S83.281A Other tear of lateral meniscus, current injury, right knee, initial encounter; S83.241A Other tear of medial meniscus, current injury, right knee, initial encounter; M17.11 Unilateral primary osteoarthritis, right knee; M85.88 Other specified disorders of bone density and structure, other site; X58.XXXA Exposure to other specified factors, initial encounter; Y93.89 Activity, other specified; Y92.89 Other specified places as the place of occurrence of the external cause; Y99.8 Other external cause status | CPT/HCPCS: 72100; 73721 ==

== ENCOUNTER → 2022-09-29 | Outpatient (CLI) | payer MEDICARE, MEDICAID | END | disposition home or self-care (01) | LOC: US 08:49 | PROVIDERS: ATTEND Internal Medicine Critical Care Medicine | DX: K76.0 Fatty (change of) liver, not elsewhere classified (principal); Z90.49 Acquired absence of other specified parts of digestive tract | CPT/HCPCS: 76700 ==

== ENCOUNTER 2023-01-08 13:51 | Emergency (ER) | payer MEDICARE, MEDICAID ==
[~2023-01-08] VITALS: Ht 154.9 cm; Wt 104.0 kg
[~2023-01-08 13:51] MED LIST changes: +SULF1TAB48 MT
[2023-01-08 14:28] LABS: BASOPHILS % 0.6 % (0.0-2.0); EOSINOPHILS % 3.7 % (0.0-5.0); HEMATOCRIT. 37.5 % (36.0-48.0); HEMOGLOBIN. 11.9 g/dL (12.0-16.0); LYMPHOCYTES % 23.9 % (20.0-50.0); MEAN CORPUSCULAR HEMOGLOBIN 27.2 pg (28.0-32.0); MEAN CORPUSCULAR VOLUME 85.6 fL (81.0-99.0); MEAN PLATELET VOLUME 8.7 fl (7.4-10.4); MONOCYTES % 5.1 % (2.0-8.0); NEUTROPHILS % 66.7 % (40.0-76.0); PLATELET 239 x1000/uL (130-400); RED BLOOD CELL COUNT 4.39 mill/uL (4.2-5.4); RED CELL DISTRIBUTION WIDTH 15.9 % (11.6-14.6)
[2023-01-08 14:36] LABS: CHLORIDE 107 mEq/L (98-107)
[2023-01-08 23:51] LABS: CLARITY URINE CLOUDY (CLEAR); COLOR URINE YELLOW (YELLOW); KETONES URINE NEGATIVE (NEGATIVE); LEUKOCYTE ESTERASE URINE NEGATIVE (NEGATIVE); NITRITE URINE NEGATIVE (NEGATIVE); OCCULT BLOOD URINE 1+ (NEGATIVE); PROTEIN URINE TRACE (NEGATIVE); UROBILINOGEN URINE 0.2 E.U./dL (0.2-1.0)
[2023-01-09] MEDS ORDERED: MELO-104 MT (00:48)
[2023-01-09 02:00] VITALS: BP 111/50
== END 2023-01-09 02:28 | disposition home or self-care (01) ==
LOC: ER 13:51
DX: M48.02 Spinal stenosis, cervical region (principal); J45.909 Unspecified asthma, uncomplicated; E11.9 Type 2 diabetes mellitus without complications; I10 Essential (primary) hypertension; Z86.73 Personal history of transient ischemic attack (TIA), and cerebral infarction without residual deficits
CPT/HCPCS: 36415; 71045; 80053; 81003; 82962; 84484; 85025; 93005; 99285

== ENCOUNTER → 2023-08-15 | Outpatient (CLI) | payer MEDICARE, MEDICAID ==
[~2023-08-15] MED LIST changes: +MELO-104 MT; +TRAV2.5D EACHEYE; -TRAV2.5D9 EACHEYE
== END | disposition home or self-care (01) ==
LOC: RAD 09:22
PROVIDERS: ATTEND Orthopaedic Surgery
DX: M25.551 Pain in right hip (principal); R10.2 Pelvic and perineal pain
CPT/HCPCS: 73502